=== PATIENT | female | born 1945 | race Caucasian/White ===

== ENCOUNTER → 2018-01-18 | Outpatient (CLI) | payer MEDICARE | END | disposition home or self-care (01) | LOC: MAMMO 13:31 | DX: Z12.31 Encounter for screening mammogram for malignant neoplasm of breast (principal) | CPT/HCPCS: 77063; 77067 ==

== ENCOUNTER → 2019-02-17 | Outpatient (CLI) | payer MEDICARE ==
[2015-12-14 12:47] VITALS: BP 191/88
--- NOTE | 2019-02-18 17:18 | RAD ---
DATE: 02/17/2019 EXAM: MAMMO NANDA SCREENING BILATERAL HISTORY: Routine screening COMPARISON: 01/17/2017 and 01/18/2018 mammographic exams This study was interpreted with the benefit of Computerized Aided Detection (CAD). Breast Density: SCATTERED The breast parenchyma shows scattered fibroglandular densities. Breast parenchyma level B. FINDINGS: Benign calcifications are present. No dominant mass, suspicious cluster of calcifications, or distortion in the interval. IMPRESSION: Stable BI-RADS CATEGORY: 1 NEGATIVE RECOMMENDED FOLLOW-UP: 12M 12 MONTH FOLLOW-UP PQRS compliance statement: Patient information was entered into a reminder system with a target due date in one year for the next mammogram. Mammography is a sensitive method for finding small breast cancers, but it does not detect them all and is not a substitute for careful clinical examination. A negative mammogram does not negate a clinically suspicious finding and should not result in delay in biopsying a clinically suspicious abnormality. "Our facility is accredited by the [employer] Mammography Program."
== END | disposition home or self-care (01) ==
LOC: MAMMO 13:53
PROVIDERS: ATTEND Internal Medicine
DX: Z12.31 Encounter for screening mammogram for malignant neoplasm of breast (principal)
CPT/HCPCS: 77063; 77067

== ENCOUNTER → 2019-12-09 | Outpatient (CLI) | payer MEDICARE ==
[2015-12-14 12:47] VITALS: BP 191/88
--- NOTE | 2019-12-09 13:49 | RAD ---
CHEST PA LATERAL Clinical indications: Chronic cough COMPARISON: None have become available. Findings: Bilateral peribronchial thickening is seen which may be acute or chronic in nature. No consolidative pneumonia or Caroline B line's or pleural effusion or pneumothorax is evident. Heart size is mildly enlarged. The pulmonary vasculature, mediastinum and both noni are unremarkable. Compression fractures of the thoracic lumbar junction are seen. This results in exaggerated thoracic kyphosis. This could be seen on a previous lumbar spine series dated December 14, 2015. IMPRESSION: Bilateral bronchitis which may be acute or chronic in nature. Mild cardiomegaly. Compression fractures of the thoracic lumbar junction. Electronically signed by: Mike Renteria MD (12/09/2019 1:46 PM) [facility]
== END | disposition home or self-care (01) ==
LOC: RAD 12:52
PROVIDERS: ATTEND Internal Medicine
DX: J40 Bronchitis, not specified as acute or chronic (principal); I51.7 Cardiomegaly; M48.55XA Collapsed vertebra, not elsewhere classified, thoracolumbar region, initial encounter for fracture
CPT/HCPCS: 71046